=== PATIENT | female | born 1995 | race African-American/Black ===

== ENCOUNTER 2017-07-12 04:17 | Emergency (ER) | payer MEDICAID ==
[~2017-07-12] VITALS: Ht 170.2 cm; Wt 99.8 kg
[~2017-07-12 04:17] MED LIST: ALBUTEROL2.5 MG/3 M INH
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
[2017-07-12 04:54] VITALS: BP 123/95
[2017-07-12 05:27] LABS: APPEARANCE,URINE CLEAR; BILIRUBIN, URINE NEGATIVE (NEGATIVE); COLOR,URINE PALE YELLOW; GLUCOSE, URINE (UA) NEGATIVE (NEGATIVE); KETONES,URINE NEGATIVE (NEGATIVE); LEUKOCYTE ESTERASE ,URINE NEGATIVE (NEGATIVE); NITRITE,URINE NEGATIVE (NEGATIVE); PH,URINE 8 (4.5-8.0); PROTEIN,URINE NEGATIVE (NEGATIVE); UROBILINOGEN,URINE NORMAL MG/DL (0.0-1.0)
[2017-07-12] MEDS ORDERED: CYCLOBENZAPRINE10 MG ORAL (06:08)
[2017-07-12] MEDS ORDERED: IBUPROFEN600 MG ORAL (06:08)
[2017-07-12] MEDS ORDERED: NORCO 5-325 TA1 EACH ORAL (06:08)
[2017-07-12 06:17] VITALS: BP 121/95
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
--- NOTE | 2017-07-12 11:42 | Diagnostic Imaging Report ---
Indication: Reason For Exam: PAIN Technique: Spiral acquisitions obtained through the cervical spine. No IV contrast utilized. Multiplanar reconstructions were generated. Total dose length product 586.16 mGycm. CTDIvol(s) 25.77 mGy. Dose reduction achieved using automated exposure control. Comparison: none Findings: Bony alignment is normal. No prevertebral soft tissue swelling. Disc spaces are preserved. Vertebral body heights are preserved. No significant disc bulge or protrusion, spinal stenosis, or neural foraminal stenosis. There is incidental finding of bilateral maxillary sinus opacification. Included extraspinal soft tissues are unremarkable Impression: Negative Incidental finding sinus disease The CT scanner at [facility] is accredited by the [employer] and the scans are performed using protocols designed to limit radiation exposure to as low as reasonably achievable to attain images of sufficient resolution adequate for diagnostic evaluation.
== END 2017-07-12 06:28 | disposition home or self-care (01) ==
LOC: EDBD 04:17 → EMR 04:30
DX: S16.1XXA Strain of muscle, fascia and tendon at neck level, initial encounter (principal); S09.8XXA Other specified injuries of head, initial encounter; V43.52XA Car driver injured in collision with other type car in traffic accident, initial encounter; Y92.410 Unspecified street and highway as the place of occurrence of the external cause; J45.909 Unspecified asthma, uncomplicated
CPT/HCPCS: 70450; 72125; 81003; 99284